=== PATIENT | female | born 2000 | race Caucasian/White ===

== ENCOUNTER 2023-12-11 13:15 | Emergency (ER) | payer BC, SELFPAY ==
[2023-12-11 13:16] VITALS: BP 124/73
--- NOTE | 2023-12-11 13:30 | ED.GENMED ---
History of Present Illness
<Yudy Cortze PA-C - Last Filed: 12/11/23 16:30>
General
Chief Complaint: Throat Problem
Source: patient
Exam Limitations: none
Time Seen by Provider: 12/11/23 13:23
Nursing documentation reviewed up to this point in time: agreed with
Travel History
Have you had any contact with someone who has COVID-19?: No
Do you have any symptoms of coronavirus? Fever > 100 degrees, chills, cough, shortness of breath, sore throat, loss of taste or smell, muscle aches, or headache?: Yes
Symptoms:: sore throat
History of Present Illness
History of Present Illness:
This is a 23 y/o female with no past medical history who is presenting to emergency department today with worsening strep throat symptoms x3 days. She states that she was seen at an urgent care on Friday, where she was diagnosed with strep throat
via swab. She also was tested for influenza that at time which was negative. She is currently on day 3 of amoxicillin. With her strep throat, she also has associated headache, nausea, and vomiting. She denies abdominal pain, denies diarrhea. She
had vomiting upon presentation to urgent care. She states that since Friday, her sore throat has been improving however her headache has been persisting and has not been able to take pain medication because of the vomiting. She does have
dissolvable Zofran tablets at home but she states that these have not helped her nausea. She denies anterior neck pain, dysphagia, trismus, diarrhea, shortness of breath, rashes.
Review of Systems
<Yudy Cortez PA-C - Last Filed: 12/11/23 16:30>
Review of Systems
All Other Systems: ROS reviewed and negative except as documented in HPI and ROS
Phy Exam
<Yudy Cortez PA-C - Last Filed: 12/11/23 16:30>
Physical Exam
Physical Exam:
General: patient is well appearing and is in no acute distress
Skin: warm and dry, no rashes or lesions
HEENT: Head-normocephalic, atraumatic. Ears-TMs clear, no erythema, no bulging. Eyes--no conjunctival erythema or exudates. Neck--no anterior/posterior cervical lymphadenopathy. Throat--some mild pharyngeal erythema, no tonsillar hypertrophy, no
tonsillar exudates
Cardiac: regular rate, no murmur
Pulm: normal respiratory effort
Abdomen: abdomen is non-distended and non-tender
Course
<Yudy Cortez PA-C - Last Filed: 12/11/23 16:30>
Orders/Labs/Results
Orders:
Orders
12/11/23 13:39
0.9% Sodium Chloride 1000 ml [Nss] 1,000 ml IV BOLUS
Ketorolac [Toradol] 15 mg IV NOW STA
Ondansetron Injectable [Zofran] 4 mg IV NOW STA
12/11/23 14:40
Complete Blood Count/With Diff Urgent
Comprehensive Metabolic Panel Urgent
12/11/23 15:24
Diphenhydramine [Benadryl] 6.25 mg IV NOW STA
Metoclopramide [Reglan] 10 mg IV NOW STA
12/11/23 15:38
Diphenhydramine [Benadryl] 25 mg IV NOW STA
Abnormal Lab Results
12/11/23
14:40
WBC 4.3 L 10^3/uL
(4.8-10.8)
Chloride 108 H mmol/L
(98-107)
12/11/23 14:40
12/11/23 14:40
Vital Signs
Initial and Last Documented VS:
Initial Vital Signs
Temp Pulse Resp BP Pulse Ox
98.3 F 88 16 124/73 97
12/11/23 13:16 12/11/23 13:16 12/11/23 13:16 12/11/23 13:16 12/11/23 13:16
Last Documented Vital Signs
Temp Pulse Resp BP Pulse Ox
98.3 F 88 16 124/73 97
12/11/23 13:16 12/11/23 13:16 12/11/23 13:16 12/11/23 13:16 12/11/23 13:16
<Nathan Brady, DO - Last Filed: 12/11/23 14:19>
Orders/Labs/Results
Orders:
Orders
12/11/23 13:39
0.9% Sodium Chloride 1000 ml [Nss] 1,000 ml IV BOLUS
Ketorolac [Toradol] 15 mg IV NOW STA
Ondansetron Injectable [Zofran] 4 mg IV NOW STA
12/11/23 14:40
Complete Blood Count/With Diff Urgent
Comprehensive Metabolic Panel Urgent
12/11/23 15:24
Diphenhydramine [Benadryl] 6.25 mg IV NOW STA
Metoclopramide [Reglan] 10 mg IV NOW STA
12/11/23 15:38
Diphenhydramine [Benadryl] 25 mg IV NOW STA
Abnormal Lab Results
12/11/23
14:40
WBC 4.3 L 10^3/uL
(4.8-10.8)
Chloride 108 H mmol/L
(98-107)
12/11/23 14:40
12/11/23 14:40
Vital Signs
Initial and Last Documented VS:
Initial Vital Signs
Temp Pulse Resp BP Pulse Ox
98.3 F 88 16 124/73 97
12/11/23 13:16 12/11/23 13:16 12/11/23 13:16 12/11/23 13:16 12/11/23 13:16
Last Documented Vital Signs
Temp Pulse Resp BP Pulse Ox
98.3 F 88 16 124/73 97
12/11/23 13:16 12/11/23 13:16 12/11/23 13:16 12/11/23 13:16 12/11/23 13:16
<Yudy Cortez PA-C - Last Filed: 12/11/23 16:30>
MDM/Problems Addressed
Differential Diagnosis Includes:
ddx include strep throat infection, tension headache, migraine headache, dehydration, amoxicillin side effect
MDM/Problems Addressed:
headache
nausea

will start patient on IV fluids, toradol, zofran, and reassess
Chronic conditions affecting care:
n/a
Acute Exacerbation and/or Progression of Chronic Illness:
n/a
<Yudy Cortez PA-C - Last Filed: 12/11/23 16:30>
*Pulse Oximetry
Patient hypoxic: no
*Critical Care Note
Total Time (30-74mins, 75-104mins- exclusive of procedures): Not Applicable
<Yudy Cortez PA-C - Last Filed: 12/11/23 16:30>
Patient Management
Escalation/DeEscalation of care consider admission/obs:
Patient is a 23 y/o female with no past medical history presenting to the ER today with a headache and nausea. She does have a strep throat infection currently which she reports is improving, but her headache and nausea have persisted. She states
that the nausea and vomiting started the day she was diagnosed with strep prior to her first dose of amoxicillin, so I am less suspicious that her symptoms are due to amoxicillin. She is on day 3 of amoxicillin. Her physical examination is
unremarkable. She was treated here intially with fluids, toradol, and zofran which did not improve her headache much, so benadryl and reglan was added which signficantly resolved her symptoms. I suspect she may have suffered from a migraine headache
vs. tension headache from dehydration/ocps. Patient stable for discharge
<Yudy Cortez PA-C - Last Filed: 12/11/23 16:30>
Update Note
Update Note:
3:10 pm-- Upon reassessment, patient in general feels a bit better and is no longer nauseas. She does still feel a moderate headache. Will try reglan and reassess.
4:09 pm-- On reassessment, patient states that her headache has resolved and she feels well, patient is stable for discharge
ED Attending Note
<Yudy Cortez PA-C - Last Filed: 12/11/23 16:30>
-
Portions of this chart may have been created with voice recognition software.� Occasional wrong word or��sound alike� substitutions may have occurred due to the inherent limitations of voice recognition software.
<Nathan Brady DO - Last Filed: 12/11/23 14:19>
ED Attending Note
Patient seen and examined by attending physician: Yes
I performed the substantive portion of visit, reviewed & personally made and approve the management plan that is documented in note by myself or ALE.: Yes
I performed a history and physical exam of patient and discussed management with resident, I reviewed resident's note and agree with documented findings and plan of care.: Yes
ED Attending Note:
I evaluated patient at bedside at 2:18 PM. The patient's throat exam is relatively unremarkable. I spoke to the mother at bedside he was concerned about ongoing vomiting but 'she is fine now'. She is well-appearing currently. She is not
tachycardic nor hypotensive. Family states that she 'always gets strep throat'. I do question if the symptoms could be related to amoxicillin use.
Discharge Plan
Departure
Patient Disposition: Home (Routine Discharge)
Date of Disposition: 12/11/23
Time of Disposition: 16:17
Patient with high blood pressure during this ER visit?: Yes
Condition: Good
Discharge Problem:
Headache, Strep throat
Instructions: Headache, Adult (DC), Migraines in adults
Referrals:
UNKNOWN - PT DOES,NOT KNOW [Family Provider] -
Stand Alone Forms: Return to Work
Activity Restrictions/Additional Instructions:
Please finish your course of amoxicillin.
Please continue to monitor your symptoms. Please follow up with your primary care provider should you have a persistence of your symptoms. P
Please return to the emergency department should you experience shortness of breath, chest pain, visual disturbances, syncopal episodes, dizziness, or other concerning signs or symptoms.
Interventions
Interventions:
*General Assessment Last Done: 12/11/23 13:16
*Neglect/Abuse Screening Last Done: 12/11/23 14:23
ED- Fall Risk Assessment Last Done: 12/11/23 14:23
*ED COVID-19 Vaccine History Last Done: 12/11/23 13:16
ED-EENT Assessment Last Done: 12/11/23 14:42
ED- Pulmonary Assessment Last Done: 12/11/23 14:23
[2023-12-11] MEDS: ZOFRAN 4 MG IV (14:36)
[2023-12-11] MEDS: NSS 1000 IV (14:36)
[2023-12-11] MEDS: TORADOL 15 MG IV (14:36)
[2023-12-11 14:51] LABS: % Basophils 0.7 % (0-2); % Immature Granulocytes 0.5 % (0-0.5); % Monocytes 9.3 % (1.7-9.3); % Neutrophils 55.5 % (42.2-75.2); Absolute Eosinophils 0.1 10^3/uL (0-0.7); Absolute Lymphocytes 1.3 10^3/uL (1.2-3.4); Absolute Monocytes 0.4 10^3/uL (0.1-0.6); Absolute Neutrophils 2.4 10^3/uL (1.4-6.5); Hematocrit 37.2 % (37.0-47.0); Hemoglobin 12.8 g/dL (12.0-16.0); Mean Corp Hgb Conc. 34.4 g/dL (33.0-37.0); Mean Corpuscular Hgb 29.6 pg (27.0-31.0); Mean Corpuscular Volume 86.1 fL (81.0-99.0); Mean Platelet Volume 8.6 fL (7.4-10.4); Nucleated Red Blood Cells % 0 %; Platelet Count 302 10^3/uL (130-400); Red Blood Cell Count 4.32 10^6/uL (4.20-5.40); Red Cell Dist. Width 12.4 % (11.5-14.5); White Blood Cell Count 4.3 10^3/uL (4.8-10.8)
[2023-12-11 15:07] LABS: ALT (SGPT) 14 U/L (0-35); AST (SGOT) 20 U/L (14-36); Albumin 4.1 g/dl (3.5-5.0); Alkaline Phosphatase 67 U/L (38-126); Blood Urea Nitrogen 10 mg/dl (7-17); Calcium 8.9 mg/dl (8.4-10.2); Carbon Dioxide 24 mmol/L (22-30); Chloride 108 mmol/L (98-107); Glucose 81 mg/dl (70-99); Potassium 4.3 mmol/L (3.5-5.1); Sodium 137 mmol/L (135-145); Total Bilirubin 0.5 mg/dl (0.2-1.3); Total Protein 7.2 g/dl (6.3-8.2); eGFR > 60.00
[2023-12-11] MEDS: REGLAN 10 MG IV (15:39)
[2023-12-11] MEDS: BENADRYL 25 MG IV (15:39)
== END 2023-12-11 16:52 | disposition home or self-care (01) ==
LOC: EMR 13:15
PROVIDERS: Physician Assistant; EMERGENCY PHYSICIAN Emergency Medicine
DX: J02.0 Streptococcal pharyngitis (principal); R51.9 Headache, unspecified; R11.2 Nausea with vomiting, unspecified; R03.0 Elevated blood-pressure reading, without diagnosis of hypertension; Z98.1 Arthrodesis status
CPT/HCPCS: 99284; 96374; 96375 ×3; 96361; 80053; 85025